=== PATIENT | female | born 1990 | race Caucasian/White ===

== ENCOUNTER 2019-02-14 06:45 | Day surgery (SDC) | payer OTHER ==
[~2019-02-14] VITALS: Ht 154.9 cm; Wt 63.5 kg
[2019-02-14] MEDS ORDERED: LIDOCAINE 2% 100 MG/5 ML UJET TP ONE (08:17)
[2019-02-14] MEDS ORDERED: fentaNYL 0.05 MG/ML VIAL ONE (08:17)
== END 2019-02-14 10:15 | disposition home or self-care (01) ==
LOC: MOR 06:45 → MMU 06:46 → MOR 10:15
PROVIDERS: ATTEND Internal Medicine Gastroenterology
DX: K64.8 Other hemorrhoids (principal); G43.909 Migraine, unspecified, not intractable, without status migrainosus; Z98.51 Tubal ligation status; Z98.82 Breast implant status; Z79.899 Other long term (current) drug therapy; Z87.891 Personal history of nicotine dependence; R19.4 Change in bowel habit
CPT/HCPCS: 45378; 81025; J3010